=== PATIENT | male | born 1995 | race African-American/Black ===

== ENCOUNTER 2024-05-01 20:50 | Emergency (ER) | payer OTHER, SELFPAY ==
[2024-05-01 20:59] VITALS: BP 129/89; PULSE 79; RESP 16; TEMP 37.4; O2SAT 99; BMI 21.5
[2024-05-01 21:51] LABS: Basophils % 0.6 %; Eosinophils # 0.1 10^3/uL (0.0-0.8); Hematocrit 42.9 % (37-53); Lymphocytes # 1.7 10^3/uL (0.8-4.8); Lymphocytes % 24.9 %; Mean Corpuscular HGB Conc 33.1 g/dL (30-55); Mean Corpuscular Hemoglobin 26.3 pg (27-33); Mean Corpuscular Volume 79.6 fl (82-101); Mean Platelet Volume 8.8 fL (7.4-10.4); Monocytes # 1.3 10^3/uL (0.2-0.9); Monocytes % 18.9 %; Neutrophils % 53.3 %; Nucleated Red Blood Cells % 0 %; Platelet Count 206 10^3/cmm (157-399); Red Blood Count 5.39 10^6/uL (3.85-5.65); Red Cell Distribution Width 14.6 % (12.1-15.1); White Blood Count 6.94 10^3/uL (3.29-11.43)
[2024-05-01 21:52] VITALS: BP 114/68; PULSE 70; RESP 15; O2SAT 98
--- NOTE | 2024-05-01 22:05 | CTR_ITS ---
PROCEDURE INFORMATION: Exam: CT Abdomen And Pelvis With Contrast Exam date and time: 05/01/2024 10:20 PM Age: 29 years old Clinical indication: Abdominal pain; Localized; Right lower quadrant (rlq); Prior surgery; Surgery date: 6+ months; Surgery type: Vasectomy; Patient HX: Rlq pain with nausea and tarry stool; Additional info: Lower abd pain/ blood in stool TECHNIQUE: Imaging protocol: Computed tomography of the abdomen and pelvis with contrast. Radiation optimization: All CT scans at this facility use at least one of these dose optimization techniques: automated exposure control; mA and/or kV adjustment per patient size (includes targeted exams where dose is matched to clinical indication); or iterative reconstruction. Contrast material: OMNI 350; Contrast volume: 100 ml; Contrast route: INTRAVENOUS (IV); COMPARISON: No relevant prior studies available. RADIATION DOSE METRICS: Total DLP (mGy-cm): 379.35 FINDINGS: Lungs: The lung bases are clear. Heart: Heart size is within normal limits. There is no pericardial effusion or pericardial thickening. Liver: The liver is normal. No hepatic masses are identified. Gallbladder and biliary ducts: The gallbladder is normal. There is no ductal dilatation. Pancreas: The pancreas is normal. Spleen: The spleen is normal. Adrenal glands: The adrenal glands are normal. Kidneys and ureters: There is normal enhancement of the kidneys. No renal calcifications are identified. There is no hydronephrosis. Stomach and bowel: No other areas of bowel wall thickening are seen. No bowel obstruction. Appendix: The majority of a normal gas-filled appendix is identified measuring up to 6 mm. There is no secondary evidence of acute appendicitis. There is questionable diffuse thickening of the right colon and transverse colon. Intraperitoneal space: No inflammatory changes are identified. There is no free fluid or fluid collection seen. There is no pneumoperitoneum. Vasculature: The aorta is normal in course and caliber. No significant atherosclerotic calcifications are present. Lymph nodes: No enlarged lymph nodes are identified. Urinary bladder: The bladder is decompressed and collapsed. No abnormality identified. Reproductive: The prostate is grossly unremarkable. Bones/joints: No acute osseous abnormalities are seen. Soft tissues: The soft tissues are within normal limits. CT/CT abdomen pelvis w con* [id number] IMPRESSION: 1. Questionable diffuse thickening of the right colon and transverse colon. Correlate with nonspecific colitis. 2. No definitive evidence of acute intra-abdominal or pelvic process. Normal appendix.
[2024-05-01 22:16] VITALS: BP 124/77; PULSE 74; RESP 16; O2SAT 99
[2024-05-01] MEDS: ondansetron 2 mg/ML SDV 2 mL 4 MG IVP (22:18)
--- NOTE | 2024-05-01 22:20 | ED_ITS ---
HPI - Abdominal Pain 2 General: Chief Complaint: Abdominal Pain Stated Complaint: Nausea and fever Time Seen by Provider: 05/01/24 21:30 Source: patient Mode of arrival: ambulatory Limitations: no limitations History of Present Illness: Patient is a 29-year-old male who presents to the emergency department complaining of nausea vomiting and diarrhea for the past 4 days. He states he is concerned that he has a colitis or other abdominal infection due to the lower worsening abdominal pain he has been having. He notes that his mother at an early age of colorectal cancer and he is anxious about this. He has been noticing blood in his diarrhea as well, and has had numerous episodes of nausea and vomiting. He has taken loperamide and dicyclomine for his symptoms, no improvement. Denies any recent sick contacts. Denies any fever, chest pain, shortness of breath, or other symptoms. Currently he states his pain is a 6/10 and feels like a dull cramping that causes him to double over occasionally. Also notes that his pain is worse with straining with bowel movements and urinating. Still has his appendix and gallbladder. MD elicited complaint: abdominal pain Onset (ago): day(s) Pain Consistency: constant Location: RLQ and LLQ Severity: moderate Quality: cramping and dull Radiation: none Migration to: no migration Associated Symptoms: Reports diarrhea, hematochezia, nausea and vomiting; Denies bloating, change in stool character, chills, constipation, dysuria and fever(s) Review of Systems 2 General: Reports: 10 or more systems reviewed and unremarkable except in HPI and below Const: Denies: fever(s), chills, change in appetite, change in weight or diaphoresis ENMT: Denies: throat pain or hoarseness Card: Denies: chest pain, palpitations or lightheadedness Resp: Denies: dyspnea, productive cough or wheezing GI: Reports: abdominal pain, nausea, vomiting, diarrhea and hematochezia; Denies: constipation, bloating or change in stool character : Denies: flank pain, difficulty urinating, dysuria, urinary frequency or urinary urgency Musc: Denies: neck pain or back pain Skin/Breast: Denies: rash or new lesions Neuro: Denies: headache(s) or dizziness Physical Exam 2 Const: COMMON NORMALS: no acute distress, average body habitus, patient oriented x3, no limitations, healthy appearing, alert and well nourished G ENERAL APPEARANCE: cooperative and comfortable ORIENTATION/CONSCIOUSNESS: Yes awake HENMT: COMMON NORMALS: normocephalic, atraumatic, hearing grossly normal bilaterally, external ears normal, Normal external nose present, Normal nasal mucous membranes and turbinates present and moist oral mucous membranes HEAD & SCALP: normocephalic and atraumatic NOSE: Normal external nose present and Normal nasal mucous membranes and turbinates present EXTERNAL EAR: Yes external ears normal Eye: COMMON NORMALS: Equal, round and reactive pupils present, EOMs intact bilaterally, conjunctivae normal and normal visual avalos by confrontation C ONJUNCTIVA: Yes conjunctivae normal PUPIL: Yes Equal, round and reactive pupils present Neck/C-Spine: COMMON NORMALS: full ROM, supple, no meningeal signs and no JVD Resp: COMMON NORMALS: normal respiratory effort, No retractions, No use of accessory muscles and clear to auscultation bilaterally AUSCULTATION: clear to auscultation bilaterally, no crackles, no rales, no rhonchi and no wheezes Cardio: COMMON NORMALS: no JVD, regular rate, regular rhythm, S1 normal heart sound present, S2 normal heart sound present, No gallops present (Cardio), No clicks present (Cardio), No murmurs present (Cardio), No rub (Cardio) and Peripheral pulses 2+ throughout RATE: regular rate RHYTHM: regular rhythm HEART SOUNDS: S1 normal heart sound present and S2 normal heart sound present PERIPHERAL PULSES: Peripheral pulses 2+ throughout GI: COMMON NORMALS: Normal to inspection, nondistended, normoactive bowel sounds present, Soft to palpation, non-tender, No hepatosplenomegaly present and no masses AUSCULTATION: Yes normoactive bowel sounds PALPATION: Yes Soft to palpation, No Guarding due to palpation present (GI), No Rigid due to palpation and Yes No hepatosplenomegaly present RECTAL EXAM: Yes deferred OTHER: No significant reproducible tenderness to palpation : COMMON NORMALS: Yes no CVA tenderness BLADDER/KIDNEY EXAM: Yes no CVA tenderness Back/Pelvis: COMMON NORMALS: no CVA tenderness Extremity: COMMON NORMALS: normal to inspection and full ROM Neuro: COMMON NORMALS: patient oriented x3, moves all extremities, no focal motor deficits and no sensory deficits noted SENSORIUM/ORIENTATION: Yes alert MENINGEAL SIGNS: Yes no meningeal signs Psych: COMMON NORMALS: mental status grossly normal, cooperative and speech normal SPEECH: Yes normal speech Skin: COMMON NORMALS: no rashes or lesions noted GENERAL SKIN EXAM: no rashes or lesions noted Course 2 Vital Signs: Vital signs: Vital Signs Temperature 99.3 F 05/01/24 20:59 Pulse Rate 58 L 05/01/24 23:30 Respiratory Rate 15 05/01/24 23:00 Blood Pressure 118/71 05/01/24 23:30 Pulse Oximetry 100 05/01/24 23:30 Oxygen Delivery Me thod Room Air 05/01/24 22:30 MDM - Abdominal Pain Medical Decision Making Patient presented for 4 days of nausea vomiting and diarrhea associated with some dull lower abdominal pain. Pain had been worsened with straining to urinate and defecate. His vitals were normal on arrival as he was found to be afebrile, condition has remained stable. His examination ultimately was normal as there was no discrete reproducible tenderness to palpation of the abdomen. His CBC and CMP were unremarkable. Urinalysis did reveal positive nitrates with involvement of leukocytes and bacteria. Upon further history gathering patient states he has been requiring the use of sitting on an ibuprofen bottle to relieve discomfort in his perineal region. He additionally states that he is sexually active only with his of 10 years. Urinalysis potentially resembles a prostatitis due to his history, and we will treat with appropriate antibiotics at this time. STD testing not obtained at this time due to lack of historical elements, however patient is informed to follow-up with primary care if he continues to have persistence or worsening of symptoms for potential testing. I discussed this with patient and he agrees to follow-up, and he will return to the emergency department with any new or worsening. Care of patient discussed with supervising ED physician, Dr. Angel, who agrees at this time. Lab Data 05/01/24 21:45 05/01/24 21:45 Labs/Radiology: Radiology Impressions Abdomen/Pelvis CT 05/01/24 22:05 IMPRESSION: 1. Questionable diffuse thickening of the right colon and transverse colon. Correlate with nonspecific colitis. 2. No definitive evidence of acute intra-abdominal or pelvic process. Normal appendix. Laboratory Results WBC 6.94 10^3/uL (3.29-11.43) 05/01/24 21:45 RBC 5.39 10^6/uL (3.85-5.65) 05/01/24 21:45 Hgb 14.20 g/dL (11.27-16.99) 05/01/24 21:45 Hct 42.9 % (37-53) 05/01/24 21:45 MCV 79.6 fl (82-101) L 05/01/24 21:45 MCH 26.3 pg (27-33) L 05/01/24 21:45 MCHC 33.1 g/dL (30-55) 05/01/24 21:45 RDW 14.6 % (12.1-15.1) 05/01/24 21:45 Plt Count 206 10^3/cmm (157-399) 05/01/24 21:45 MPV 8.8 fL (7.4-10.4) 05/01/24 21:45 Neut % (Auto) 53.3 % 05/01/24 21:45 Lymph % (Auto) 24.9 % 05/01/24 21:45 Wise % (Auto) 18.9 % 05/01/24 21:45 Eos % (Auto) 2.0 % 05/01/24 21:45 Baso % (Auto) 0.6 % 05/01/24 21:45 Neut # (Auto) 3.70 10^3/uL (1.8-7.7) 05/01/24 21:45 Lymph # (Auto) 1.7 10^3/uL (0.8-4.8) 05/01/24 21:45 Wise # (Auto) 1.3 10^3/uL (0.2-0.9) H 05/01/24 21:45 Eos # (Auto) 0.1 10^3/uL (0.0-0.8) 05/01/24 21:45 Baso # (Auto) 0.0 10^3/uL (0.0-0.1) 05/01/24 21:45 Nucleated RBC % (auto) 0 % 05/01/24 21:45 Nucleated RBCs # 0.0 /100WBC 05/01/24 21:45 Sodium 139 mmol/L (136-145) 05/01/24 21:45 Potassium 3.3 mmol/L (3.5-5.1) L 05/01/24 21:45 Chloride 98 mmol/L (98-107) 05/01/24 21:45 Carbon Dioxide 28 mmol/L (22-29) 05/01/24 21:45 Anion Gap 16.3 (5-19) 05/01/24 21:45 BUN 13 mg/dL (6-20) 05/01/24 21:45 Creatinine 1.1 mg/dL (0.7-1.2) 05/01/24 21:45 GFR Calculation 95.1 mL/min (90-130) 05/01/24 21:45 Glucose 118 mg/dL (65-115) H 05/01/24 21:45 Calculated Osmolality 289 mOsm/kg (285-295) 05/01/24 21:45 Calcium 9.0 mg/dL (8.5-10.5) 05/01/24 21:45 Total Bilirubin 0.4 mg/dL (0.15-1.2) 05/01/24 21:45 AST 24 U/L (0-40) 05/01/24 21:45 ALT 21 U/L (0-41) 05/01/24 21:45 Alkaline Phosphatase 70 U/L (40-130) 05/01/24 21:45 Total Protein 7.5 g/dL (6.6-8.7) 05/01/24 21:45 Albumin 4.4 g/dL (3.5-5.2) 05/01/24 21:45 Globulin 3.1 g/dL (1.3-4.6) 05/01/24 21:45 Lipase 14 U/L (13-60) 05/01/24 21:45 Urine Color Dark yellow (Yellow) A 05/01/24 22:20 Urine Appearance Clear (CLEAR) 05/01/24 22:20 Urine pH 5 (5-7) 05/01/24 22:20 Ur Specific [place] 1.020 (1.005-1.030) 05/01/24 22:20 Urine Protein 1+ (Negative) H 05/01/24 22:20 Urine Glucose (UA) Norm (Normal) 05/01/24 22:20 Urine Ketones 1+ (Negative) H 05/01/24 22:20 Urine Blood Neg (Negative) 05/01/24 22:20 Urine Nitrate Positive (Negative) A 05/01/24 22:20 Urine Bilirubin Neg (Negative) 05/01/24 22:20 Urine Urobilinogen 1 mg/dL (Negative) H 05/01/24 22:20 Ur Leukocyte Esterase Trace (Negative) H 05/01/24 22:20 Urine RBC 0-4 /hpf (0-2) H 05/01/24 22:20 Urine WBC 5-10 /hpf (0-5) H 05/01/24 22:20 Ur Squamous Epith Cells 0-4 /hpf (0-5) H 05/01/24 22:20 Amorphous Sediment Trace /hpf 05/01/24 22:20 Urine Bacteria 1+ /hpf (NONE) H 05/01/24 22:20 Urine Mucus 3+ /hpf 05/01/24 22:20 All radiology interpretation(s) finalized by discharge Discharge Plan Discharge Patient Disposition: Home Clinical Impression: Prostatitis Condition: Stable Prescriptions: New Cipro 500 mg tablet 500 mg PO BID 14 Days Qty: 28 0RF Discharge Orders: Discharge ED (Routine); Ordered 05/01/24 Ordered By: Dada Torres Discharge Diet: As Directed Discharge Activity: Increase activity as tolerated Patient Instructions: Prostatitis (ED) Activity Restrictions/Additional Instructions: Take ciprofloxacin as prescribed. Avoid any strenuous/fast twitch exercises while on the Cipro. Drink plenty of fluids. Tylenol/ibuprofen for pain. If your symptoms persist or worsen, please follow-up with primary care to discuss further or change in treatment. Additionally, return with any new or concerning symptoms you may have. Coding Level of Care Code ED Vessel Specialist for Jerzy Pate
[2024-05-01 22:21] LABS: Alanine Aminotransferase 21 U/L (0-41); Albumin Level 4.4 g/dL (3.5-5.2); Alkaline Phosphatase 70 U/L (40-130); Anion Gap 16.3 (5-19); Aspartate Amino Transferase 24 U/L (0-40); Blood Urea Nitrogen 13 mg/dL (6-20); Carbon Dioxide 28 mmol/L (22-29); Chloride 98 mmol/L (98-107); Creatinine Clr Calc Pharmacy 98.6328; Globulin 3.1 g/dL (1.3-4.6); Glomerular Filtration Rate 95.1 mL/min (90-130); Glucose 118 mg/dL (65-115); Lipase 14 U/L (13-60); Osmolality Calculated 289 mOsm/kg (285-295); Potassium 3.3 mmol/L (3.5-5.1); Sodium 139 mmol/L (136-145); Total Bilirubin 0.4 mg/dL (0.15-1.2); Total Protein 7.5 g/dL (6.6-8.7)
[2024-05-01] MEDS: iohexol 350 mg/mL 500 mL Btl (per mL) IV (22:22)
[2024-05-01] MEDS: sodium chloride 0.9% 1,000 ML 999 ML IV (22:28)
[2024-05-01 22:30] VITALS: BP 122/68; PULSE 77; RESP 15; O2SAT 99
[2024-05-01 22:33] LABS: Add Urine Microscopic? YES; Amorphous Sediment Urine TRACE /hpf; Bacteria Urine 1+ /hpf; Bilirubin Urine Neg (Negative); Blood Urine Neg (Negative); Glucose Urine UA Norm (Normal); Ketones Urine 1+ (Negative); Leukocyte Esterase Urine Trace (Negative); Mucus Urine 3+ /hpf; Nitrate Urine Positive (Negative); Protein Urine 1+ (Negative); RBC Urine 0-4 /hpf (0-2); Squamous Epithelial Cell Urine 0-4 /hpf (0-5); Urine Appearance Clear (CLEAR); Urine Color Dark Yellow (Yellow); Urobilinogen Urine 1 mg/dL (Negative); pH Urine 5 (5-7)
[2024-05-01 23:00] VITALS: BP 116/75; PULSE 74; RESP 15; O2SAT 100
[2024-05-01 23:30] VITALS: BP 118/71; PULSE 58; O2SAT 100
[2024-05-02] MEDS: ciprofloxacin 500 mg Tablet PO (00:11)
[2024-05-02 00:18] VITALS: BP 135/85; PULSE 85; RESP 14; O2SAT 100
== END 2024-05-02 00:19 | disposition home or self-care (01) ==
PROVIDERS: Emergency Medicine; Emergency Provider Physician Assistant
DX: N41.9 Inflammatory disease of prostate, unspecified (principal)
CPT/HCPCS: 36415; 74177; 80053; 81001; 83690; 85025; 96361; 96374; 99285; J2405; J7030; Q9967

== ENCOUNTER 2024-08-09 09:50 | Day surgery (SDC) | payer OTHER, SELFPAY ==
--- NOTE | 2024-08-09 10:06 | P.HPUD_ITS ---
Surgery/Procedure H&P Update DATE OF PROCEDURE: August 09, 2024 DATE H&P PERFORMED: 08/02/24 H&P UPDATE INFORMATION: I have reviewed H&P completed within last 30 days, I have examined patient prior to procedure, No changes to prior documentation and H&P is in [facility] on date indicated PLANNED PROCEDURE: Operation Date: 08/09/24 11:00 Proposed Procedures p Colonoscopy [id number], G0105, Z12.11(Not Applicable) - Dada Mckeon MD
[2024-08-09 10:08] VITALS: BP 116/75; PULSE 67; RESP 18; TEMP 36.2; O2SAT 99
--- NOTE | 2024-08-09 10:13 | ANES.PREANE2 ---
Pre-Anesthetic Assessment Height/Weight: Height 1.78 m Weight 70.76 kg Temp Pulse Resp BP Pulse Ox O2 Del Method 97.2 F L 67 18 116/75 99 Room Air 08/09/24 10:08 08/09/24 10:08 08/09/24 10:08 08/09/24 10:08 08/09/24 10:08 08/09/24 10:08 Preop Diagnosis: Screening Operation Date: 08/09/24 11:00 Proposed Procedures p Colonoscopy [id number], G0105, Z12.11(Not Applicable) - Dada Mckeon MD Familial anesthetic complications: none Was Beta Coreen taken within 24 hours: N/A Was Clonidine taken within 24 hours: N/A Last intake: Intake Last Liquid Date 08/08/24 Last Liquid Time 20:00 Last Solid Date 08/07/24 Last Solid Time 23:45 Social No alcohol and No tobacco Marijuana use 1200 08/08/24 Exam alert, oriented x 3, clear to auscultation bilaterally and regular rate & rhythm Airway Submandibular: within normal limits Cervical ROM: within normal limits Mallampati: Class I Dentition: full Pulmonary Asthma CV/HEM None reported None reported Hepatic None reported GI Chronic IBS Neuropsych PTSD Anesthetic Plan ASA status: 1 Anesthesia: MAC Medications/Allergies Home Medications Medication Instructions Recorded Confirmed Last Taken Type albuterol 90 mcg/actuation aerosol 90 mcg inhalation QID PRN 08/04/24 08/04/24 08/07/24 History inhaler Shortness Of Breath Or Wheezing budesonide 160 mcg-glycopyr 9 2 inh inhalation BID 08/04/24 08/04/24 08/04/24 History mcg-formot 4.8 mcg/actuation HFA inhaler (Breztri Aerosphere) Allergies Allergy/AdvReac Type Severity Reaction Status Date / Time blueberry Allergy Unknown Verified 08/02/24 13:36 shellfish derived Allergy ALGY-Rash Verified 08/02/24 13:36 [facility] Anesthesia Family History (Updated 08/02/24 @ 13:42 by HAKEEM Ward) Mother Colon cancer Social History (Updated 08/02/24 @ 13:43 by HAKEEM Ward) Smoking and tobacco/nicotine status: never used tobacco/nicotine Alcohol intake: never Data Anesthesia Cardiac Studies: No Data to Display
[2024-08-09] MEDS: sodium chloride 0.9% 1,000 ML 30 ML IV (10:20)
[2024-08-09 11:17] VITALS: BP 91/60; PULSE 78; RESP 18; TEMP 36.3; O2SAT 98
[2024-08-09 11:27] VITALS: BP 105/58; PULSE 77; RESP 18; TEMP 36.3; O2SAT 95
--- NOTE | 2024-08-09 11:50 | ANE.PACU2 ---
Inpatient post-anesthesia follow up: Airway intact: Yes Vital signs: Temperature 97.3 F Pulse Rate 77 Respiratory Rate 18 Blood Pressure 105/58 Pulse Oximetry 95 Oxygen Delivery Me thod Room Air Oxygen Flow Rate Fraction of Inspir ed Oxygen Hydration adequate: Yes Nausea and vomiting: No Pain level: 1 Mental status: Baseline
== END 2024-08-09 11:54 | disposition home or self-care (01) ==
PROVIDERS: PCP Nurse Practitioner; Visit Provider Surgery
PROC: 0DJD8ZZ Inspection of Lower Intestinal Tract, Via Natural or Artificial Opening Endoscopic (ICD-10-PCS; CPT 45378; principal; 2024-08-09 11:00)
DX: Z12.11 Encounter for screening for malignant neoplasm of colon (principal); K51.40 Inflammatory polyps of colon without complications; J45.909 Unspecified asthma, uncomplicated
CPT/HCPCS: 45380; 45385; 88305; J2250; J2704; J7030

== ENCOUNTER → 2025-04-27 13:44 | Outpatient (BNVA) | payer OTHER, SELFPAY | PROVIDERS: PCP Nurse Practitioner; Visit Provider Podiatrist Foot & Ankle Surgery | DX: M79.671 Pain in right foot (principal); M79.672 Pain in left foot; M25.371 Other instability, right ankle; M25.372 Other instability, left ankle; M21.41 Flat foot [pes planus] (acquired), right foot; M21.42 Flat foot [pes planus] (acquired), left foot; M24.573 Contracture, unspecified ankle | CPT/HCPCS: 73630; 99203 ==